=== PATIENT | male | born 1955 | race Caucasian/White ===

== ENCOUNTER 2017-03-10 17:32 | Emergency (ER) | payer SELFPAY ==
[2017-03-10 18:33] VITALS: BP 155/88
--- NOTE | 2017-03-10 19:33 | UC ---
Skin Complaint HPI - HPI Summary HPI Summary: pt presents with tick bite to right lateral mid morales that was removed this morning. pt c/o that small piece still intact - History of Current Complaint Chief Complaint: [facility] Time Seen by Provider: 03/10/17 19:24 Stated Complaint: tick Hx Obtained From: Patient Onset/Duration: Sudden Onset, Resolved Skin Exposure Onset/Duration: Hours Ago - 24 Onset Severity: Mild Current Severity: None Location: Discrete - right lateral mid morales Aggravating: Nothing Related History: Insect Bite/Sting - Allergy/Home Medications Allergies/Adverse Reactions: Allergies Allergy/AdvReac Type Severity Reaction Status Date / Time Penicillins Allergy Unknown Verified 03/10/17 18:25 Reaction Details Home Medications: Home Medications NK [No Home Medications Reported] 03/10/17 [History Confirmed 03/10/17] Review of Systems Constitutional: Negative Skin: Other - tick bite, with small part of tick still attached Eyes: Negative ENT: Negative Respiratory: Negative Cardiovascular: Negative Gastrointestinal: Negative Genitourinary: Negative Motor: Negative Neurovascular: Negative Musculoskeletal: Negative Neurological: Negative Psychological: Negative All Other Systems Reviewed And Are Negative: Yes PMH/Surg Hx/FS Hx/Imm Hx Previously Healthy: Yes - Surgical History Surgical History: Yes Surgery Procedure, Year, and Place: CHOLECYSTECTOMY - Family History Known Family History: Positive: Hypertension - Social History Alcohol Use: Weekly Substance Use Type: None Smoking Status (MU): Never Smoked Tobacco Type: Smokeless Tobacco Amount Used/How Often: 1 can every 5 days Length of Time of Smoking/Using Tobacco: 25 YRS Physical Exam Triage Information Reviewed: Yes Appearance: Well-Appearing Vital Signs: Initial Vital Signs Temp 99.1 F 03/10/17 18:25 Pulse 91 03/10/17 18:25 Resp 16 03/10/17 18:25 BP 155/88 03/10/17 18:25 Pulse Ox 96 03/10/17 18:25 Eye Exam: Normal Neck exam: Normal Respiratory Exam: Normal Musculoskeletal Exam: Normal Neurological Exam: Normal Psychological Exam: Normal Skin Exam: Other - small piece of tick/insect intact right mid lateral morlaes, removed with wiping with alcohol swab and splinter forceps Course/Dx - Differential Diagnoses - Skin Complaint Differential Diagnoses: Tick Born Illness - Diagnoses Provider Diagnoses: tick bite, tick piece removed Discharge - Discharge Plan Condition: Stable Disposition: HOME Patient Education Materials: Tick Bite (ED) Referrals: [facility] [Outside] No Primary Care Phys,NOPCP [Primary Care Provider] -
== END 2017-03-10 19:41 | disposition home or self-care (01) ==
LOC: UCCORT 17:32
DX: S80.861A Insect bite (nonvenomous), right lower leg, initial encounter (principal); W57.XXXA Bitten or stung by nonvenomous insect and other nonvenomous arthropods, initial encounter; Y93.9 Activity, unspecified; Y92.9 Unspecified place or not applicable; Z90.49 Acquired absence of other specified parts of digestive tract; Z88.0 Allergy status to penicillin; F17.220 Nicotine dependence, chewing tobacco, uncomplicated
CPT/HCPCS: 99211; G0463